=== PATIENT | male | born 1940 | race Caucasian/White ===

== ENCOUNTER → 2017-01-23 | Day surgery (SDC) | payer MEDICARE ==
[~2017-01-23] MED LIST: ASPI1TAB69 PO; B-COCAP8 PO; BUPIVACAINE HCL PF 0.5% 30 ML VIAL ONE; CALC600T4 PO; GLUC1CAP14 PO; OLME0.09 PO; OMEG100010 PO; PROPOFOL 200 MG/20 ML AMP IV ONE; ROSU5 PO; TRIAMCINOLONE ACETONIDE 40 MG/ML VIAL I-ARTICULR ONE; methylPREDNISolone ACETATE 40 MG/ML VIAL I-ARTICULR ONE
--- NOTE | 2017-01-26 09:59 | M6 ---
cc: JOAO RIOS M.D. DATE: 01/23/2017 DATE OF : 1940 PROCEDURE Fluoroscopically guided injection bilateral sacroiliac joints. History and physical was completed and signed. Consent was signed. Procedure site was marked. Medications were listed and reconciled. Pain score was recorded. Allergies were noted. Time out was taken. Fluoroscopy time was recorded where applicable. Sedation was administered or directed by Dr. Rios. The patient was given oxygen. The patient was monitored by a registered nurse. Total procedure time was greater than 15 minutes. IV was started, blood pressure cuff, pulse oximeter and EKG were applied. The patient was placed in the prone position on a [place]ady table sedated with small amounts of propofol titrated to effect. Vital signs were monitored and remained stable throughout the procedure. Fluoroscopy was used shooting from medial to lateral to clearly visualize the posterior joint line of the bilateral sacroiliac joint. Separate sterile 5-inch 22-gauge spinal needles were advanced into these joints under fluoroscopic guidance. There was negative aspiration for blood or any other type of fluid and at each location the patient was given 2 mL of 0.5% Marcaine 20 mg of Depo-Medrol and 20 mg of Kenalog. Following the procedure the patient was taken to the recovery room with stable vital signs neurologically intact. He will be evaluated immediately and with followup to determine if he has a subjective decrease in his usual pain and a corresponding objective increase his functional capabilities. W. MD KAI Decker/parker /10:04 AM /9:48 AM
== END | disposition home or self-care (01) ==
LOC: PHSDC 08:28
PROVIDERS: ATTEND Pain Medicine Interventional Pain Medicine
DX: M54.5 Low back pain (principal)
CPT/HCPCS: 99152; G0260; J1030; J3301; 27096